=== PATIENT | female | born 1975 ===

== ENCOUNTER 2020-09-21 14:06 | Emergency (ER) | payer OTHER ==
[2020-09-21 14:47] LABS: CORONAVIRUS COVID-19 NAA NEGATIVE (NEGATIVE)
[2020-09-21] MEDS ORDERED: Albuterol/Ipratropium 3.0-0.5 MG/3 ML Neb Soln NEB ONE (15:16)
--- NOTE | 2020-09-21 15:18 | EDM.PDOC ---
ED HPI GENERAL MEDICAL PROBLEM - General Chief Complaint: Respiratory Problem Stated Complaint: SENT FROM [facility] Time Seen by Provider: 09/21/20 15:17 Source of Information: Reports: Patient, RN, RN Notes Reviewed History Limitations: Reports: No Limitations - History of Present Illness INITIAL COMMENTS - FREE TEXT/NARRATIVE: Julieta is a 44 y/o female who presents to the ED via personal vehicle at the request of COVID screeners at [facility] for complaints of productive cough, shortness of breath, and chest pain. Additionally, she notes sore throat and sinus congestion. The patient reports her symptoms began two days ago and have maintained in severity. She denies fever, vision changes, headache, shaking chills, palpitations, dyspepsia, nausea, or vomiting. She has been taking Mucinex with mild alleviation of congestion and cough. The patient attest to smoking one pack of cigarettes daily; she denies alcohol or recreational drug use. She denies history of COVID vaccination. chest wall Pain Score (Numeric/FACES): 8 - Related Data Allergies Allergy/AdvReac Type Severity Reaction Status Date / Time morphine Allergy Rash Verified 09/21/20 15:41 seasonal Allergy Sneezing Uncoded 09/21/20 15:41 Home Meds: Home Meds Venlafaxine HCl [Venlafaxine ER] 150 mg PO DAILY 09/21/20 [History] ED ROS GENERAL - Review of Systems Review Of Systems: Comprehensive ROS is negative, except as noted in HPI. ED EXAM, GENERAL - Physical Exam Exam: See Below Exam Limited By: No Limitations General Appearance: Alert, Mild Distress (Productive cough) Eye Exam: Bilateral Eye: EOMI, Normal Inspection, PERRL (2mm) Ears: Normal External Exam, Normal Canal, Hearing Grossly Normal. No: Normal TMs (Serous fluid behind TM) Ear Exam: Bilateral Ear: Auricle Normal, Canal Normal, TM Dull Nose: Normal Inspection, Normal Mucosa, No Blood, Clear Rhinorrhea Throat/Mouth: Normal Voice, No Airway Compromise, Inflammation (Erythema to posterior oropharynx) Head: Atraumatic, Normocephalic Neck: Normal Inspection, Supple, Non-Tender, Full Range of Motion, Lymphadenopathy (L) (Anterior cervical chain). No: Lymphadenopathy (R) Respiratory/Chest: No Accessory Muscle Use, Wheezing (Expiratory, bilaterally). No: Chest Non-Tender (With deep inspiration), Crackles, Rales, Rhonchi, Stridor , Retractions, Prolonged Expiration Cardiovascular: Normal Peripheral Pulses, Regular Rate, Rhythm, No Edema, No Gallop, No JVD, No Murmur, No Rub Peripheral Pulses: 2+: Radial (L), Radial (R) GI/Abdominal: Normal Bowel Sounds, Soft, Non-Tender (Female) Exam: Deferred Rectal (Female) Exam: Deferred Back Exam: Normal Inspection, Full Range of Motion Extremities: Normal Inspection, Normal Range of Motion Neurological: Alert, Oriented, CN II-XII Intact, Normal Cognition, Normal Gait, No Motor/Sensory Deficits Psychiatric: Normal Affect, Normal Mood Skin Exam: Warm, Dry, Intact, Normal Color, No Rash. No: Cyanosis, Ecchymosis, Erythema, Jaundice, Mottled, Pallor, Petechiae Lymphatic: Other (Left anterior cervical chain) #1 Interpretation EKG Date: 09/21/20 Time: 15:08 Rhythm: NSR Rate (Beats/Min): 86 [place]: Normal P-Wave: Present QRS: Normal ST-T: Normal QT: Normal IA/PQ Interval: 0.157 Comparison: NA - No Prior EKG EKG Interpretation Comments: NSR; Slight q-wave in III; No evidence of acute myocardial ischemia Course - Vital Signs Last Recorded V/S: Last Vital Signs Temp 97.6 F 09/21/20 15:37 Pulse 83 09/21/20 15:37 Resp 16 09/21/20 15:37 BP 116/66 09/21/20 15:37 Pulse Ox 98 09/21/20 15:37 - Orders/Labs/Meds Labs: Laboratory Tests 09/21/20 09/21/20 09/21/20 Range/Units 13:40 14:55 14:55 WBC 6.5 (5.0-10.0) 10^3/uL RBC 4.70 (4.2-5.4) 10^6/uL Hgb 14.8 (12.0-16.0) g/dL Hct 44.5 (37.0-47.0) % MCV 94.7 (80-100) fL MCH 31.5 (27.0-34.0) pg MCHC 33.3 (33.0-35.0) g/dL Plt Count 302 (150-450) 10^3/uL Neut % (Auto) 52.6 (42.2-75.2) % Lymph % (Auto) 31.0 (20.5-50.1) % [place]arro % (Auto) 11.9 H (2-8) % Eos % (Auto) 3.6 H (1.0-3.0) % Baso % (Auto) 0.9 (0.0-1.0) % D-Dimer, Quantitative 149 (0-400) ng/mL Sodium (136-145) mmol/L Potassium (3.5-5.1) mmol/L Chloride (98-107) mmol/L Carbon Dioxide (21-32) mmol/L Anion Gap (7-13) mEq/L BUN (7-18) mg/dL Creatinine (0.55-1.02) mg/dL Est Cr Clr Drug Dosing Estimated GFR (MDRD) BUN/Creatinine Ratio (No establ ref range) Glucose (70-99) mg/dL Calcium (8.5-10.1) mg/dL Total Bilirubin (0.2-1.0) mg/dL AST (15-37) U/L ALT (14-59) U/L Alkaline Phosphatase (46-116) U/L Troponin I High Sens (<=51) pg/mL C-Reactive Protein (0.0-0.9) mg/dL B-Natriuretic Peptide (0-100) pg/ml Total Protein (6.4-8.2) g/dL Albumin (3.4-5.0) g/dL Globulin Albumin/Globulin Ratio Influenza Type A RNA Negative (NEGATIVE) Influenza Type B RNA Negative (NEGATIVE) SARS-CoV-2 RNA ([place]) Negative (NEGATIVE) 09/21/20 Range/Units 14:55 WBC (5.0-10.0) 10^3/uL RBC (4.2-5.4) 10^6/uL Hgb (12.0-16.0) g/dL Hct (37.0-47.0) % MCV (80-100) fL MCH (27.0-34.0) pg MCHC (33.0-35.0) g/dL Plt Count (150-450) 10^3/uL Neut % (Auto) (42.2-75.2) % Lymph % (Auto) (20.5-50.1) % [place]arro % (Auto) (2-8) % Eos % (Auto) (1.0-3.0) % Baso % (Auto) (0.0-1.0) % D-Dimer, Quantitative (0-400) ng/mL Sodium 141 (136-145) mmol/L Potassium 4.2 (3.5-5.1) mmol/L Chloride 103 (98-107) mmol/L Carbon Dioxide 27 (21-32) mmol/L Anion Gap 15.2 H (7-13) mEq/L BUN 10 (7-18) mg/dL Creatinine 1.15 H (0.55-1.02) mg/dL Est Cr Clr Drug Dosing TNP Estimated GFR (MDRD) 51 BUN/Creatinine Ratio 8.7 (No establ ref range) Glucose 89 (70-99) mg/dL Calcium 9.4 (8.5-10.1) mg/dL Total Bilirubin 0.2 (0.2-1.0) mg/dL AST 22 (15-37) U/L ALT 31 (14-59) U/L Alkaline Phosphatase 107 (46-116) U/L Troponin I High Sens < 4 (<=51) pg/mL C-Reactive Protein 0.7 (0.0-0.9) mg/dL B-Natriuretic Peptide 28 (0-100) pg/ml Total Protein 7.3 (6.4-8.2) g/dL Albumin 3.6 (3.4-5.0) g/dL Globulin 3.7 Albumin/Globulin Ratio 1.0 Influenza Type A RNA (NEGATIVE) Influenza Type B RNA (NEGATIVE) SARS-CoV-2 RNA ([place]) (NEGATIVE) Meds: Medications Discontinued Medications Generic Name Dose Route Start Last Admin Trade Name Freq PRN Reason Stop Dose Admin Albuterol/Ipratropium 3 ml 09/21/20 15:16 09/21/20 15:22 Albuterol/Ipratropium 3.0-0.5 Mg/3 Ml Neb Soln NEB 09/21/20 15:17 3 ml ONETIME ONE Administration - Re-Assessments/Exams Free Text/Narrative Re-Assessment/Exam: 09/21/20 COVID test sent. Labs and CXR pending. COVID negative. DuoNeb administered. Patient verbalized improvement in work of breathing following nebulizer. Findings of examination, lab work, and imaging reviewed with patient. Will treat viral upper respiratory illness with Tessalon and Cepacol. Patient instructed to follow up with PCP regarding today's visit. Discussed supportive cares as well as red flag signs and symptoms which would warrant reevaluation reviewed. Patient verbalized understanding and agreement with the plan of care. Departure - Departure Time of Disposition: 16:16 Disposition: Home, Self-Care 01 Condition: Good Clinical Impression: Pleurisy Upper respiratory infection Qualifiers: URI type: unspecified viral URI Qualified Code(s): J06.9 - Acute upper respiratory infection, unspecified - Discharge Information *PRESCRIPTION DRUG MONITORING PROGRAM REVIEWED*: Not Applicable *COPY OF PRESCRIPTION DRUG MONITORING REPORT IN PATIENT RONNY: Not Applicable Instructions: Viral Respiratory Infection Forms: ED Department Discharge Additional Instructions: Rx: Tessalon Luz Maria Rx: Cepacol 1.) Follow up with your primary care provider in 3-5 days should symptoms persist or worsen despite medications. 2.) Attempt smoking cessation. 3.) You may take ibuprofen (Advil/Motrin) 400mg every six hours, as chest wall pain persists. You may also take acetaminophen (Tylenol) 650mg every six hours, as pain persists. You may stagger these medications so you are receiving a dose every three hours.
[2020-09-21 15:23] LABS: ANION GAP 15.2 mEq/L (7-13); CHLORIDE,CL 103 mmol/L (98-107); SODIUM,NA 141 mmol/L (136-145)
--- NOTE | 2020-09-21 15:41 | CR ---
EXAMINATION: Chest 1V Frontal SEX: Female AGE: 44 years CLINICAL HISTORY: 44-year-old female with chest "tightness" and shortness of breath (SOB). Interpretation: Negative exam. Normal cardiac silhouette (size and configuration). Left-sided aortic arch. Normal midline tracheal bronchial airway. No pulmonary vascular congestion, cephalization of flow, alveolar edema or dependent pleural effusion. No lung mass or hilar/mediastinal lymphadenopathy. No alveolar infiltrate, atelectasis/collapse, or peripheral "groundglass" interstitial lung densities. No pneumothorax or pneumomediastinum. Thorax unremarkable (AP projection).
== END 2020-09-21 16:33 | disposition home or self-care (01) ==
LOC: DL.ED 14:06
DX: J06.9 Acute upper respiratory infection, unspecified (principal); R09.1 Pleurisy; Z88.5 Allergy status to narcotic agent; Z91.09 Other allergy status, other than to drugs and biological substances; Z20.822 Contact with and (suspected) exposure to COVID-19
CPT/HCPCS: 0240U; 36415; 71045; 80053; 83880; 84484; 85025; 85379; 86140; 93005; 93010; 94640; 99283; 99285; J7620-GY